=== PATIENT | female | born 2005 | race Caucasian/White ===

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

== ENCOUNTER → 2024-11-18 16:11 | Outpatient (CLI) | payer OTHER, SELFPAY ==
--- NOTE | 2024-11-18 17:49 | DIET.OUTPTC ---
Dietary Outpatient Consult Consult Date: 11/18/24 Assessment:? 19 y F referred to dietitian for diarrhea, unspecified type and generalized abdominal pain Halle reports significant GI symptoms as noted below. Just finished college finals and plans to make GI appt. GI symptoms: Diarrhea: type 5-6 on [place] stool chart Experiences diarrhea almost daily after eating any meal, watery and chunky (undigested food) stools, within 30 minutes after eating, this has been going on for 1-2 yrs now Also experiences multiple episodes of diarrhea accompanied by severe abd pain in the morning, wake pt up, pt goes to bathroom and feels some relief of symptoms about 30 minutes after. This happens 1x/wk on average and is increasing in frequency within the last few months. Some nausea - pt wonders if it is associated with recent start of control Acid reflux - regurgitation of food, abd pain after eating. Notes trigger foods of Mongolian/spicy, greasy, baked goods, and heavy foods. Also notes if eating large amount of food very fast. 1 week ago stopped using sugar alcohol and artificial sweeteners. No change in symptoms. Also stomach upset after eating dairy, avoids to reduce symptoms but still has the other symptoms above even without dairy in diet. Notes will get very hungry at certain points and eat lots of food very fast. Diet Recall: B- oatmeal with water and nuts, drink with syrup/refresher from coffee shop L-whole wheat bread and 2 eggs or stirfry with veg (no protein) snacks- granola bars (like chewy) or toast D-pad yoruba/soup/stirfry with rice and vegs (1-2 cups), has meat (4 oz) or 1 can of beans with this dinner 60% of time German yogurt 1-2x/wk Not taking any supplements. 6-8 hrs sleep Activity: 30-60 minutes 2x/wk weight lifting Fluids: adequate water Ht:?x? Wt:?54.3 kg?(119 lb) BMI:?19.3? UBW: 115-125 lb, pt has been stable for last few years Pertinent Labs: No labs available for review, but pt shows labs from 2023 with normal CBC, normal B12 levels, and slightly low vitamin D at 28 Nutrition Diagnosis:? Altered GI function r/t alterations in GI tract structure or function as evidenced by diarrhea after meals and diarrhea with severe abd pain Interventions:? Discussed and provided appropriate resources on the following: -Nutrition therapy for GERD including trigger foods to avoid and strategies to reduce symptoms (eating slower, smaller freq meals, waiting before lying down after eating) -Protein needs and protein sources -Discussed GI symptoms, occurrences, as well as possible malabsorption occurring d/t diarrhea with undigested food shortly after eating Goals: -Make appt with GI -Keep symptom journal -Have a protein source at dinner and lunch 100% of time, beans or meat and add 1 extra protein source in daily to meet needs (i.e. 1 serving of nuts, beninese yogurt, 1-2 eggs) -Smaller freq meals to prevent large meal at rapid pace or larger meal if unavoidable but slow meal down to >30 minutes and chewing food adequately RD impressions: Pt needs eval by GI doctor to assess cause of diarrhea and severe abd pain. Pt has GI referral in place already. Suspect pt's large meals and rapid eating are related to: 1. inadequate consistent intakes with good protein sources 2: possible malabsorption 3: difficult to implement consistent meals with discomfort of diarrhea after eating. Discussed this with pt Monitoring/Evaluations:? F/u after GI appt Electronically Signed by: Dona Leyva Clinical Dietitian [address] [id number]
== END ==
PROVIDERS: Referring Provider Family Medicine
DX: R19.7 Diarrhea, unspecified (principal); R10.84 Generalized abdominal pain; Z71.3 Dietary counseling and surveillance; Z68.1 Body mass index [BMI] 19.9 or less, adult
CPT/HCPCS: 97802